=== PATIENT | female | born 1995 ===

== ENCOUNTER 2023-03-23 17:05 | Inpatient (IN) | payer BC ==
[2023-03-23] MEDS ORDERED: Water For Irrigation,Sterile 1,000 ML Container IRR PRN (17:20)
[2023-03-23] MEDS ORDERED: Misoprostol 25 MCG (1/4 of 100 MCG) Tab VAG PRN (17:20)
[2023-03-23] MEDS ORDERED: Sodium Chloride 0.9% 2.5 ML Syringe FLUSH PRN (17:20)
[2023-03-23] MEDS ORDERED: Methylergonovine 0.2 MG/1 ML Amp IM PRN (17:20)
[2023-03-23] MEDS ORDERED: Terbutaline 1 MG/ML SDV SUBCUT PRN (17:20)
[2023-03-23] MEDS ORDERED: Tranexamic Acid 1,000 MG in Sodium Chloride 0.9% 100 ML IV PRN (17:20)
[2023-03-23] MEDS ORDERED: Sodium Chloride 0.9% 10 ML Syringe FLUSH PRN (17:20)
[2023-03-23] MEDS ORDERED: Lidocaine 1% 50 ML MDV INJECT PRN (17:20)
[2023-03-23] MEDS ORDERED: Carboprost Tromethamine 250 MCG/1 mL Vial IM PRN (17:20)
[2023-03-23] MEDS ORDERED: Misoprostol 200 MCG Tab PO PRN (17:20)
[2023-03-23] MEDS ORDERED: Sodium Chloride 0.9% 20 ML SDV IV PRN (17:20)
[2023-03-23] MEDS ORDERED: Oxytocin/0.9 % Sodium Chloride 30 UNIT/500 ML BAG IV SCH ×2 (17:30)
[2023-03-23 17:44] LABS: HEMATOCRIT 36.7 % (36.0-46.0); HEMOGLOBIN 12.4 g/dL (12.0-16.0); MEAN CORPUSCULAR HEMOGLOBIN 30.4 pg (27.0-32.0); MEAN CORPUSCULAR HGB CONC 33.8 g/dL (31.0-37.0); MEAN PLATELET VOLUME 10.8 fL (7.40-12.00); RED BLOOD CELL COUNT 4.08 M/uL (4.30-5.90); WHITE BLOOD CELL COUNT,WBC 12.33 K/uL (4.0-11.0)
[2023-03-23 18:13] LABS: AMPHETAMINES SCREEN, URINE NEGATIVE (CUTOFF=500); BARBITURATE SCREEN,URINE NEGATIVE (CUTOFF=200); BENZODIAZEPINES SCREEN,URINE NEGATIVE (CUTOFF=150); BUPRENORPHINE SCREEN,URINE NEGATIVE (CUTOFF=10); METHADONE SCREEN, URINE NEGATIVE (CUTOFF=200); METHAMPHETAMINES SCREEN, URINE NEGATIVE (CUTOFF=500); OXYCODONE SCREEN,URINE NEGATIVE (CUT0FF=100); PCP SCREEN,URINE NEGATIVE (CUTOFF=25); PROPOXYPHENE SCREEN,URINE NEGATIVE (CUTOFF=300); THC SCREEN,URINE 20 NG/ML NEGATIVE (CUTOFF=50)
[2023-03-23] MEDS: Misoprostol 25 MCG (1/4 of 100 MCG) Tab VAG PRN ×2 (18:16→22:38)
[2023-03-24] MEDS: Butorphanol 1 MG/ML SDV IVPUSH PRN ×3 (02:01→07:48)
[2023-03-24] MEDS: Lactated Ringers 1,000 ML IV SCH ×4 (05:40→17:45)
[2023-03-24] MEDS ORDERED: ePHEDrine 50 MG/ML SDV IVPUSH PRN ×4 (07:18→09:03)
[2023-03-24] MEDS ORDERED: Phenylephrine HCl 0.5 MG/5 ML AMP IVPUSH PRN ×2 (07:18→09:03)
[2023-03-24] MEDS ORDERED: Ropivacaine HCl/PF 400 MG in Premix Bag 1 BAG EPIDUR SCH ×2 (07:30→09:15)
[2023-03-24] MEDS ORDERED: Bupivacaine 0.5% 10 ML SDV ONE (08:19)
[2023-03-24] MEDS ORDERED: Ropivacaine/PF 400 MG/200 ML PCA ONE (08:19)
[2023-03-24] MEDS ORDERED: Ondansetron 4 MG/2 ML SDV IVPUSH PRN (19:44)
[2023-03-25] MEDS: Lactated Ringers 1,000 ML IV SCH ×3 (01:10→13:09)
[2023-03-25] MEDS ORDERED: Bupivacaine 0.5% 10 ML SDV ONE (01:16)
[2023-03-25] MEDS ORDERED: Oxytocin 10 Units/1 ML SDV ONE (01:17)
[2023-03-25] MEDS ORDERED: fentaNYL 100 MCG/2 ML SDV ONE (01:17)
[2023-03-25] MEDS ORDERED: Ketorolac 30 MG/ML SDV ONE (01:17)
[2023-03-25] MEDS ORDERED: Ondansetron 4 MG/2 ML SDV ONE (01:17)
[2023-03-25] MEDS ORDERED: Dexamethasone 4 MG/ML 5 ML MDV ONE (01:17)
[2023-03-25] MEDS ORDERED: Ropivacaine 0.5% 5 MG/ML 30 ML SDV ONE ×2 (01:17→02:28)
[2023-03-25] MEDS ORDERED: ceFAZolin 1 GM Vial ONE (01:17)
[2023-03-25] MEDS ORDERED: Morphine PF 10 MG/10 ML SDV ONE (01:17)
[2023-03-25] MEDS ORDERED: Lidocaine 2% 5 ML SDV ONE (01:18)
[2023-03-25] MEDS ORDERED: Citric Acid/Sodium Citrate Solution 30 ML Cup PO ONE (01:19)
[2023-03-25] MEDS ORDERED: ceFAZolin 2 GM in Sodium Chloride 0.9% 50 ML IV ONE (01:19)
[2023-03-25] MEDS ORDERED: Lactated Ringers 1,000 ML IV SCH (01:30)
[2023-03-25] MEDS ORDERED: Midazolam 1 MG/ML 2 ML SDV ONE (02:24)
[2023-03-25] MEDS ORDERED: Bisacodyl 10 MG Supp RECTAL PRN (03:07)
[2023-03-25] MEDS ORDERED: Lanolin 100% Cream 7 GM Tube TOP PRN (03:07)
[2023-03-25] MEDS ORDERED: Acetaminophen/oxyCODONE 325-5 MG Tab PO PRN ×2 (03:07→03:14)
[2023-03-25] MEDS ORDERED: diphenhydrAMINE 50 MG/ML SDV IVPUSH PRN ×2 (03:07→03:14)
[2023-03-25] MEDS ORDERED: Misoprostol 200 MCG Tab RECTAL PRN (03:07)
[2023-03-25] MEDS ORDERED: Naloxone 0.4 MG/ML SDV IVPUSH PRN (03:14)
[2023-03-25] MEDS ORDERED: Ondansetron 4 MG/2 ML SDV IVPUSH PRN ×2 (03:14)
[2023-03-25] MEDS ORDERED: HYDROmorphone 1 MG/ML Syringe IVPUSH PRN (03:14)
[2023-03-25] MEDS ORDERED: fentaNYL 50 MCG/ML SDV IVPUSH PRN (03:14)
[2023-03-25] MEDS ORDERED: Morphine 2 MG/ML SYRINGE IVPUSH PRN (03:14)
[2023-03-25] MEDS ORDERED: fentaNYL 100 MCG/2 ML SDV IVPUSH PRN (03:14)
[2023-03-25] MEDS ORDERED: Albuterol 0.083% 2.5 MG/3 ML Neb Soln NEB PRN (03:14)
[2023-03-25] MEDS ORDERED: Metoclopramide 10 MG/2 ML SDV IVPUSH PRN (03:14)
[2023-03-25] MEDS ORDERED: droPERidol 5 MG/2 ML SDV IVPUSH PRN (03:14)
[2023-03-25 03:23] LABS: PH,UMBILICAL ARTERIAL 7.543 (7.18-7.38); PH,UMBILICAL VENOUS 7.324 (7.25-7.45)
[2023-03-25] MEDS ORDERED: Ketorolac 30 MG/ML SDV IVPUSH SCH (03:30)
[2023-03-25 05:59] LABS: HEMATOCRIT 37.7 % (36.0-46.0); HEMOGLOBIN 12.7 g/dL (12.0-16.0); MEAN CORPUSCULAR HEMOGLOBIN 30.2 pg (27.0-32.0); MEAN CORPUSCULAR HGB CONC 33.7 g/dL (31.0-37.0); MEAN CORPUSCULAR VOLUME 89.8 fL (80.0-98.0); MEAN PLATELET VOLUME 10.5 fL (7.40-12.00); RED BLOOD CELL COUNT 4.2 M/uL (4.30-5.90); WHITE BLOOD CELL COUNT,WBC 27.12 K/uL (4.0-11.0)
[2023-03-25] MEDS: Ketorolac 30 MG/ML SDV IVPUSH SCH ×3 (08:52→19:48)
[2023-03-25] MEDS: Docusate Sodium 100 MG Cap PO SCH ×2 (08:52→21:03)
[2023-03-26] MEDS: Ketorolac 30 MG/ML SDV IVPUSH SCH (02:05)
[2023-03-26] MEDS: Docusate Sodium 100 MG Cap PO SCH (08:18)
[2023-03-26] MEDS ORDERED: Ibuprofen 800 MG Tab PO PRN (09:00)
[2023-03-26] MEDS: Acetaminophen/oxyCODONE 325-5 MG Tab PO PRN (15:24)
[2023-03-27] MEDS: Acetaminophen/oxyCODONE 325-5 MG Tab PO PRN ×2 (00:20→08:00)
[2023-03-27] MEDS: Docusate Sodium 100 MG Cap PO SCH ×2 (00:20→08:00)
== END 2023-03-27 13:50 | disposition home or self-care (01) | DRG 540 ==
LOC: MW.OBCHECK 17:05 → MW.OB 17:05 → MW.OBCHECK 17:42 → MW.OB 17:43 → OBSVTOIN 03-25 02:02 → MW.OB 03-25 05:33
PROVIDERS: ADMIT Obstetrics & Gynecology; ATTEND Obstetrics & Gynecology
PROC: 10D00Z1 Extraction of Products of Conception, Low, Open Approach (ICD-10-PCS; principal; 2023-03-25)
PROC: 3E0P7VZ Introduction of Hormone into Female Reproductive, Via Natural or Artificial Opening (ICD-10-PCS; 2023-03-25)
PROC: 3E033VJ Introduction of Other Hormone into Peripheral Vein, Percutaneous Approach (ICD-10-PCS; 2023-03-25)
PROC: 3E0R3BZ Introduction of Anesthetic Agent into Spinal Canal, Percutaneous Approach (ICD-10-PCS; 2023-03-25)
PROC: 00HU33Z Insertion of Infusion Device into Spinal Canal, Percutaneous Approach (ICD-10-PCS; 2023-03-25)
DX: O76 Abnormality in fetal heart rate and rhythm complicating labor and delivery (principal); Z37.0 Single live birth; O62.1 Secondary uterine inertia; Z3A.40 40 weeks gestation of pregnancy
CPT/HCPCS: 01967; 01968; 36415; 51702; 64488; 80305-QW; 82803; 85027; 86592; 86850; 86900; 86901; A9270-GY; J0595; J0690; J1100; J1885; J2250; J2274; J2405; J2590; J2795; J3010; J3490; J7120